=== PATIENT | female | born 1965 | race Caucasian/White ===

== ENCOUNTER 2020-03-19 01:25 | Day surgery (SDC) | payer OTHER, SELFPAY ==
[2020-03-18 13:30] VITALS: BMI 33.0
[2020-03-19 08:11] VITALS: BP 150/98; PULSE 70; RESP 16; TEMP 36.3; O2SAT 96; BMI 31.9
--- NOTE | 2020-03-19 08:36 | WPDANESEPPF ---
Anes - Initial Pre Proc Eval Procedure: Operation Date: 03/19/20 09:15 Proposed Procedures p Esophagogastroduodenoscopy & Screening Colonoscopy - Ajith Perkins MD Date/Time: 03/19/20 08:36 Surgeon: Ajith Perkins MD Pre Op Diagnosis: reflux, neoplasm screening Patient Data Age: 54 Gender: F Height: 5 ft 2 in Weight: 79.2 kg Last Vital Signs Temp 36.3 C L 03/19/20 08:11 Pulse 70 03/19/20 08:11 Resp 16 03/19/20 08:11 BP 150/98 H 03/19/20 08:11 Pulse Ox 96 03/19/20 08:11 Allergies Allergy/AdvReac Type Severity Reaction Status Date / Time No Known Allergies Allergy Unknown Verified 03/19/20 08:09 Home Medications Medication Instructions Recorded Confirmed Type alprazolam 0.5 mg tablet 0.5 mg PO TID 10/03/19 03/19/20 History ibuprofen 800 mg tablet 800 mg PO TID 10/03/19 03/19/20 History nebivolol 5 mg tablet 5 mg PO DAILY 10/03/19 03/19/20 History rosuvastatin 20 mg tablet 20 mg PO DAILY #30 tablet 11/01/19 03/19/20 Rx triamterene 75 1 tablet PO DAILY #30 tablet 11/01/19 03/19/20 Rx mg-hydrochlorothiazide 50 mg tablet lamotrigine 200 mg tablet 200 mg PO DAILY #30 tablet 12/05/19 03/19/20 Rx fluoxetine 20 mg capsule 20 mg PO DAILY #90 cap 12/06/19 03/19/20 Rx omeprazole 40 mg capsule,delayed 40 mg PO DAILY #30 cap 02/28/20 03/18/20 Rx release peg 3350-electrolytes 236 240 ml PO Q10M #4000 ml 03/12/20 Rx gram-22.74 gram-6.74 gram-5.86 gram solution Patient hx anesthesia problems: none Family hx anesthesia problems: none PMFSH Past Medical History Medical History Alternating constipation and diarrhea Bloating Colon cancer screening Piriformis muscle pain Urinary incontinence Family History Family History Grandparent Cerebrovascular accident Family history of malignant neoplasm of breast Family history of coronary artery disease Other Diabetes mellitus Social History Social History Smoking status: Never smoker Alcohol intake: current Anes - Eval Final PreProcedure Day of Procedure 03/19/20 08:36 Patient weight: obese Heart: regular rate and rhythm Lungs: clear to auscultation Airway: Mallampati scale Informed Consent: The patient's anesthetic plan and its attendant risks and benefits were discussed with the patient/family/POA. Questions were solicited and answers provided to the satisfaction of the patient/family/POA.
--- NOTE | 2020-03-19 09:02 | PM.HPGS ---
History of Present Illness History of Present Illness Consent: Risks, benefits, and alternatives have been discussed and questions answered. Patient agrees to proceed with procedure. Chief complaint: reflux, neoplasm screening Narrative: Queta Tellez is a 54 year old female with bloating, alternating constipation and diarrhea, never had scopes. GERD symptoms better with ppi Review of Systems Constitutional: Constitutional: Denies headache(s) and Denies weakness Eyes: Eyes: Denies blurry vision ENT: Reports Normal hearing present, Denies headache(s) and Denies neck pain Cardiovascular: Cardiovascular: Denies chest pain and Denies dyspnea Respiratory: Respiratory: Denies dyspnea Gastrointestinal: Gastrointestinal: Reports no additional gastrointestinal complaints Genitourinary: Genitourinary: Denies dysuria Musculoskeletal: Musculoskeletal: Denies neck pain Integumentary/Breasts: Skin/Breast: Denies dry skin Neurologic: Reports Normal hearing present, Denies headache(s) and Denies weakness Psychiatric: Psychiatric: Denies anxiety Endocrine: Endocrine: Denies change in body appearance Hematologic/Lymphatic: Hematologic/Lymphatic: Denies easy bleeding Allergic/Immunologic: Allergic/Immunologic: Denies urticaria [facility], [facility] Past Medical History Medical History Alternating constipation and diarrhea Bloating Colon cancer screening Piriformis muscle pain Urinary incontinence Family History Family History Grandparent Cerebrovascular accident Family history of malignant neoplasm of breast Family history of coronary artery disease Other Diabetes mellitus Social History Social History Smoking status: Never smoker Alcohol intake: current Meds Home Medications and Allergies Home Medications Medication Instructions Recorded Confirmed Type alprazolam 0.5 mg tablet 0.5 mg PO TID 10/03/19 03/19/20 History ibuprofen 800 mg tablet 800 mg PO TID 10/03/19 03/19/20 History nebivolol 5 mg tablet 5 mg PO DAILY 10/03/19 03/19/20 History rosuvastatin 20 mg tablet 20 mg PO DAILY #30 tablet 11/01/19 03/19/20 Rx triamterene 75 1 tablet PO DAILY #30 tablet 11/01/19 03/19/20 Rx mg-hydrochlorothiazide 50 mg tablet lamotrigine 200 mg tablet 200 mg PO DAILY #30 tablet 12/05/19 03/19/20 Rx fluoxetine 20 mg capsule 20 mg PO DAILY #90 cap 12/06/19 03/19/20 Rx omeprazole 40 mg capsule,delayed 40 mg PO DAILY #30 cap 02/28/20 03/18/20 Rx release peg 3350-electrolytes 236 240 ml PO Q10M #4000 ml 03/12/20 Rx gram-22.74 gram-6.74 gram-5.86 gram solution Allergies Allergy/AdvReac Type Severity Reaction Status Date / Time No Known Allergies Allergy Unknown Verified 03/19/20 08:09 Vital Signs Vital Signs - 24 hr 03/19/20 08:11 Temperature 97.3 F L Pulse Rate 70 Respiratory Rate 16 Blood Pressure 150/98 H Pulse Oximetry 96 Exam Const: General: comfortable and no acute distress HENMT: General nose exam: Normal nares present Eyes: General: appearance normal, both eyes and all related structures Neck: Neck: no JVD Resp: Auscultation: clear to auscultation bilaterally Cardio: Rate: regular rate Rhythm: regular rhythm GI: Inspection: non-distended GI Palp: Yes Soft to palpation Skin: General skin exam: normal color Neuro: General: gait normal Speech: normal speech Extrem: General: normal to inspection Psych: Mental Status: mental status grossly normal Assessment and Plan Assessment and plan (1) Alternating constipation and diarrhea: Code(s): R19.8 - Other specified symptoms and signs involving the digestive system and abdomen Status: Acute Assessment and Plan: will proceed with colonoscopy, consider random bx (2) Bloating: Code(s): R14.0 - Abdominal distension (gaseous) Status:
[2020-03-19] MEDS: LACTATED RINGERS 1,000 ML 150 ML IV CONT (09:08)
[2020-03-19 09:36] VITALS: BP 150/98; PULSE 70; RESP 16; O2SAT 96
[2020-03-19 09:46] VITALS: BP 113/74; PULSE 72; RESP 16; O2SAT 96
[2020-03-19 09:56] VITALS: BP 116/77; PULSE 64; RESP 17; O2SAT 93
== END 2020-03-19 10:12 | disposition home or self-care (01) ==
PROVIDERS: PCP Family Medicine; Visit Provider Internal Medicine Gastroenterology
PROC: 0DJ08ZZ Inspection of Upper Intestinal Tract, Via Natural or Artificial Opening Endoscopic (ICD-10-PCS; CPT 43235; principal; 2020-03-19 09:15)
DX: Z12.11 Encounter for screening for malignant neoplasm of colon (principal); K29.50 Unspecified chronic gastritis without bleeding; K52.9 Noninfective gastroenteritis and colitis, unspecified; E66.9 Obesity, unspecified; Z68.31 Body mass index [BMI] 31.0-31.9, adult
CPT/HCPCS: 45380; 43239; 88305; J2704; J7120

== ENCOUNTER 2023-10-26 08:54 | Outpatient (CLI) | payer OTHER, SELFPAY ==
--- NOTE | ~2023-10-26 | MM_ITS ---
EXAMINATION: MM screening [facility] HISTORY: Screening TECHNIQUE: Craniocaudal and mediolateral oblique 3-D tomosynthesis images were obtained and synthetic 2-D images were generated. CAD analysis was submitted and interpreted. COMPARISON: Comparison to multiple prior studies sequentially, with oldest reviewed study dated 06/2014. BREAST PARENCHYMAL COMPOSITION: There are scattered areas of fibroglandular density. FINDINGS: There is no evidence of suspicious mass, calcification, or architectural distortion to sugg est malignancy in either breast. There has been no suspicious interval change. IMPRESSION: 1. No mammographic evidence of malignancy. 2. Recommend routine screening mammography in one year. BI-RADS Category 1: Negative Reviewed, dictated and finalized at location A. GE MECHANIC
== END 2023-10-26 08:55 | disposition home or self-care (01) ==
LOC: ANHIMG 08:57
PROVIDERS: PCP Family Medicine; Visit Provider Obstetrics & Gynecology
DX: Z12.31 Encounter for screening mammogram for malignant neoplasm of breast (principal)
CPT/HCPCS: 77063; 77067

== ENCOUNTER 2024-09-24 13:23 | Emergency (ER) | payer OTHER, SELFPAY ==
[2024-09-24] VITALS (11 sets, daily range): BP systolic 126–165; BP diastolic 79–100; PULSE 60–70; RESP 13–23; TEMP 36.7–36.9; O2SAT 96–100
--- NOTE | ~2024-09-24 | XR_ITS ---
XR chest 1V portable Ordering provider: Daniel Anderson MD History: 58 years Female with . HTN . Comparison: None. FINDINGS: MEDIASTINUM: The cardiac silhouette is not enlarged. LUNGS: No infiltrates, effusions or pneumothorax. Prominent bronchovascular markings with interstitial thickening seen bilaterally which may indicate p neumonitis versus fibrotic changes. OTHER: No free air under the diaphragm. IMPRESSION: Bilateral interstitial thickening which may indicate pneumonitis versus fibrotic changes. Clinical co rrelation advised. Reviewed, dictated and finalized at location A. SEWER IMPRESSION: Bilateral interstitial thickening which may indicate pneumonitis versus fibroti c changes. Clinical correlation advised.
--- NOTE | ~2024-09-24 | CT_ITS ---
EXAMINATION: CT brain wo con DATE: 09/24/2024 15:39 INDICATION: Headache. TECHNIQUE: Computed tomography (CT) of the head was performed without intravenous contrast. The mA wa s adjusted according to patient size. Iterative reconstruction technique was employed. The dose-lengt h product was 605.33 mGy-cm. COMPARISON: None FINDINGS: There is no intracranial hemorrhage, acute infarction, or abnormal intracranial mass lesion . The ventricles are normal in size. The orbits are normal. There is mild mucosal thickening in the p aranasal sinuses. The mastoid air cells are normal. IMPRESSION: 1. Normal brain. Reviewed, dictated and finalized at location A. TRONICS LEAD IMPRESSION: 1. Normal brain.
--- NOTE | 2024-09-24 14:14 | ECG_ITS ---
Test Date: 2024-09-24 14:28:35 Measurements Intervals Pinch Rate: 61 P: 29 [place]: 177 QRS: 4 QRSD: 98 T: 2 QT: 443 QTc: 447 Interpretive Statements SINUS RHYTHM MODERATE VOLTAGE CRITERIA FOR LVH, CONSIDER NORMAL VARIANT [MEETS CRITERIA IN ONE OF: R(aVL), S(V1), R(V5), R(V5/V6)+S(V1)] MINIMAL ST DEPRESSION [0.025+ mV ST DEPRESSION] No previous ECG available for comparison Electronically Signed On 09-24-2024 15:23:41 SURGICAL TRAINING SPECIALIST by Lee Akbar D.O.
--- NOTE | 2024-09-24 15:26 | ED_ITS ---
HPI - General Adult General Chief complaint: Recheck/Abnormal Lab/Rx Stated complaint: htn Time Seen by Provider: 09/24/24 15:16 History of Present Illness HPI narrative: 58-year-old female presented to the emergency department for evaluation for complaint chest tightness headache and intermittent hypertension. Patient does have a history of high blood pressures states her blood pressures have been running higher than usual. Patient states she has had discussions with primary care physician to have her blood pressure medications increased. Patient states her blood pressure this morning was approximately 170 systolic. Emergency department patient's blood pressures are closer to 130 systolic. Patient states she is still having headache and still having lightheadedness. Patient denies any associated nausea vomiting diarrhea. Patient denies any associated abdominal pain or pain with urination. Patient denies any falls or injuries. Related Data Allergies Allergy/AdvReac Type Severity Reaction Status Date / Time No Known Allergies Allergy Unknown Verified 05/09/24 08:59 Review of Systems Review of Systems: All systems reviewed & are unremarkable except as noted in HPI and below PMFSH Past Medical History Medical History Alternating constipation and diarrhea Bloating Colon cancer screening Difficulty concentrating Elevated hemoglobin A1c Hypertension Piriformis muscle pain Screening for thyroid disorder Urinary incontinence Family History Family History Grandparent Cerebrovascular accident Family history of malignant neoplasm of breast Family history of coronary artery disease Other Diabetes mellitus Social History Social History Smoking status: Never smoker Alcohol intake: current Substance use: never Substance use type: does not use Exam Narrative: APPEARANCE: Well appearing, no pain, no distress, well-nourished. HEAD: normocephalic, atraumatic. EYES: PERRLA/EOMI, conjunctivae clear. NOSE: Normal no drainage EARS:TMS clear with good light reflex. THROAT: Pharynx clear, no exudate. NECK: Supple. No adenopathy, no masses. RESPIRATORY: Airway patent, respirations nonlabored. Clear to auscultation bilaterally, no rales, rhonchi, wheezing. CARDIOVASCULAR: Regular rate and rhythm without murmurs rubs or gallops. ABDOMINAL: Soft, nontender, nondistended, normal bowel sounds MUSCULOSKELETAL: Moves all extremities. Strength/ROM intact, No edema, No calf tenderness. NEURO: Alert. Cranial nerves II through XII intact. Grossly intact SKIN: Warm, dry. Normal Color Course Vital Signs Vital signs: Vital Signs Temperature 98.0 F 09/24/24 13:23 Pulse Rate 66 09/24/24 13:23 Respiratory Rate 16 09/24/24 13:23 Blood Pressure 165/90 H 09/24/24 13:23 Pulse Oximetry 99 09/24/24 13:23 Oxygen Delivery Room Air 09/24/24 13:23 Temperature 98.4 F 09/24/24 17:33 Pulse Rate 70 09/24/24 17:16 Respiratory Rate 13 09/24/24 17:16 Blood Pressure 156/96 H 09/24/24 17:16 Pulse Oximetry 100 09/24/24 17:16 Oxygen Delivery Room Air 09/24/24 13:23 Medical Decision Making MDM Narrative Medical decision making narrative: 58-year-old female presents emergency department for evaluation for headache and hypertension. Patient was not hypertensive in the emergency department. Patient is afebrile with no leukocytosis and hemoglobin of 13.6. Patient has no significant abnormalities on her CMP patient was negative for influenza RSV and for COVID. Head CT showed no acute intracranial abnormalities. Patient was still complaining of headache at time of evaluation but patient declined any medications for headache treatment. Patient was encouraged to have close follow-up with her primary care physician to have her blood pressure medications re-evaluated. Imaging did show possible pneumonitis. Patient did have evidence of a viral syndrome. Patient was not started antibiotics. Patient was provided albuterol inhaler to help with any shortness of breath. Prior to discharge patient's pulse ox was 100% and she had no elevated respiratory rate. Differential Diagnosis Differential Diagnosis: Hypertensive urgency, hypertensive crisis, headache, viral etiology, viral synd teddy Vital Signs Vital Signs: Vital Signs Temperature 98.0 F 09/24/24 13:23 Pulse Rate 66 09/24/24 13:23 Respiratory Rate 16 09/24/24 13:23 Blood Pressure 165/90 H 09/24/24 13:23 Pulse Oximetry 99 09/24/24 13:23 Oxygen Delivery Room Air 09/24/24 13:23 Temperature 98.4 F 09/24/24 17:33 Pulse Rate 70 09/24/24 17:16 Respiratory Rate 13 09/24/24 17:16 Blood Pressure 156/96 H 09/24/24 17:16 Pulse Oximetry 100 09/24/24 17:16 Oxygen Delivery Room Air 09/24/24 13:23 Lab Data Lab results reviewed: Yes I reviewed the patient's lab results. 09/24/24 16:03 09/24/24 16:03 Labs: Lab Results 09/24/24 Range/Units 16:03 WBC 7.0 (4.5-10.0) K/mm3 RBC 4.21 (4.2-5.4) M/mm3 Hgb 13.6 (12.0-15.0) g/dL Hct 39.6 (37.0-47.0) % MCV 94.1 (80-100) fl MCH 32.3 (26-34) pg MCHC 34.3 (32-36) g/dl RDW 11.8 (11.5-14.5) % Plt Count 223 (150-375) k/mm3 MPV 10.4 (7.4-10.4) fl Immature Gran % (Auto) 0.4 (0-0.5) % Neut % (Auto) 61.0 (45.5-73.1) % Lymph % (Auto) 31.2 (18.3-44.2) % [place] % (Auto) 6.3 (2.6-8.5) % Eos % (Auto) 0.7 (0-4.4) % Baso % (Auto) 0.4 (0.2-1.2) % Lymph # (Auto) 2.17 (0.9-3.2) K/mm3 [place]win # (Auto) 0.4 (0.1-0.6) K/mm3 Eos # (Auto) 0.1 (0-0.3) K/mm3 Baso # (Auto) 0.0 (0.0-0.1) K/mm3 Abs Immat Gran (auto) 0.03 (0.00-0.031) K/mm3 Absolute Neuts (auto) 4.2 (1.3-6.7) K/mm3 Absolute Nucleated RBC 0.000 (0.0-0.012) K/mm3 Nucleated RBC % 0.0 (0.0-0.2) % Sodium 136 L (137-145) mmol/L Potassium 3.1 L (3.4-5.0) mmol/L Chloride 98 (98-107) mmol/L Carbon Dioxide 27 (22-30) mmol/L Anion Gap 11 (4-12) mmol/L BUN 16 (7-17) mg/dL Creatinine 0.70 (0.7-1.0) mg/dL Estim Creat Clear Calc 73 ml/min Estimated GFR > 60 (59 - ) Glucose 137 H (65-110) mg/dL Calcium 9.6 (8.4-10.2) mg/dL Total Bilirubin 0.5 (0.2-1.3) mg/dL AST 63 H (14-36) U/L ALT 87 H (6-35) U/L Alkaline Phosphatase 92 (38-126) U/L Total Protein 8.0 (6.3-8.2) g/dL Albumin 4.8 (3.5-5.1) g/dL Influenza A (RT-PCR) Negative (Negative) Influenza B (RT-PCR) Negative (Negative) RSV (RT-PCR) Negative (Negative) SARS-CoV-2 RNA (RT-PCR) Negative (Negative) Imaging Data Radiologist's impression: Impressions Chest X-Ray 09/24/24 15:33 IMPRESSION: Bilateral interstitial thickening which may indicate pneumonitis versus fibrotic changes. Clinical correlation advised. Head CT 09/24/24 15:41 IMPRESSION: 1. Normal brain. Discharge Plan Discharge Clinical Impression: HTN (hypertension) Patient Disposition: Home, Self-Care Condition: Stable Instructions: Antibiotic Form, Viral Syndrome (ED) Additional Instructions: Have close follow-up with your primary care physician for your hypertension. Tylenol and ibuprofen for headache. Albuterol inhaler for any shortness of breath. If you have any worsening symptoms please call or return to the emergency department. Prescriptions: New albuterol sulfate 90 mcg/actuation HFA aerosol inhaler 1 inh inhalation QID PRN (Reason: shortness of breath or wheezing) Qty: 6.7 0RF No Action buspirone 10 mg tablet 10 mg PO BID Qty: 60 6RF omeprazole 40 mg capsule,delayed release(DR/EC) 40 mg PO DAILY Qty: 30 6RF lamotrigine 200 mg tablet 200 mg PO DAILY Qty: 30 3RF rosuvastatin 20 mg tablet 20 mg PO DAILY Qty: 90 1RF metoprolol succinate 25 mg tablet extended release 24 hr 25 mg PO DAILY Qty: 30 2RF triamterene-hydrochlorothiazid 75-50 mg tablet See Rx Instructions .ROUTE .COMPLEX Qty: 90 0RF Dose Instruction: TAKE 1 TABLET BY MOUTH DAILY Rx Instructions: TAKE 1 TABLET BY MOUTH DAILY Follow-up/Referrals: Matt Campa MD [Primary Care Provider] -
[2024-09-24 16:09] LABS: Basophils Percent Auto 0.4 % (0.2-1.2); Eosinophils Absolute Auto 0.1 K/mm3 (0-0.3); Eosinophils Percent Auto 0.7 % (0-4.4); Hematocrit 39.6 % (37.0-47.0); Hemoglobin 13.6 g/dL (12.0-15.0); Immature Granulocyte Absolute 0.03 K/mm3 (0.00-0.031); Immature Granulocyte Percent A 0.4 % (0-0.5); Lymphocytes Absolute Auto 2.17 K/mm3 (0.9-3.2); Lymphocytes Percent Auto 31.2 % (18.3-44.2); Mean Corpuscular HGB Conc 34.3 g/dl (32-36); Mean Corpuscular Hemoglobin 32.3 pg (26-34); Mean Corpuscular Volume 94.1 fl (80-100); Mean Platelet Volume 10.4 fl (7.4-10.4); Monocytes Absolute Auto 0.4 K/mm3 (0.1-0.6); Monocytes Percent Auto 6.3 % (2.6-8.5); Neutrophils Absolute Auto 4.2 K/mm3 (1.3-6.7); Platelet Count Result 223 k/mm3 (150-375); Red Blood Count 4.21 M/mm3 (4.2-5.4); Red Cell Distribution Width 11.8 % (11.5-14.5)
[2024-09-24 16:22] LABS: Alanine Aminotransferase 87 U/L (6-35); Albumin Level 4.8 g/dL (3.5-5.1); Alkaline Phosphatase 92 U/L (38-126); Anion Gap 11 mmol/L (4-12); Aspartate Amino Transferase 63 U/L (14-36); Bilirubin,Total 0.5 mg/dL (0.2-1.3); Blood Urea Nitrogen 16 mg/dL (7-17); Calcium 9.6 mg/dL (8.4-10.2); Carbon Dioxide 27 mmol/L (22-30); Chloride 98 mmol/L (98-107); Estimated CRCL calculation 73 ml/min; Estimated Glomerular Filt Rate > 60; Glucose 137 mg/dL (65-110); Potassium 3.1 mmol/L (3.4-5.0); Sodium 136 mmol/L (137-145)
[2024-09-24 16:46] LABS: Influenza A QL RT-PCR Negative (Negative); Influenza B QL RT-PCR Negative (Negative); RSV RNA, RT-PCR Negative (Negative); SARS-CoV-2 RNA PCR Negative (Negative)
== END 2024-09-24 17:33 | disposition home or self-care (01) ==
PROVIDERS: Emergency Provider Emergency Medicine; PCP Family Medicine
DX: I10 Essential (primary) hypertension (principal); Z20.822 Contact with and (suspected) exposure to COVID-19
CPT/HCPCS: 36415; 70450; 71045; 80053; 85025; 87637; 93005; 99284